=== PATIENT | female | born 1960 | race Caucasian/White ===

== ENCOUNTER 2017-01-07 07:19 | Day surgery (SDC) | payer MEDICARE, MEDICAID ==
[2017-01-07] VITALS (11 sets, daily range): BP systolic 101–177; BP diastolic 65–101; PULSE 59–77; RESP 14–18; O2SAT 92–99
[~2017-01-07] VITALS: Ht 152.4 cm; Wt 118.4 kg
[~2017-01-07 07:19] MED LIST: ALBU8.5H2 INHALATION; ATOR20TA PO; AZU500 PO; CHOL5000 PO; Clindamycin 600 mg/50 mL D5W IV ONE; HYDR-3740 PO; HYDR200T5 PO; NAPR500T PO; PREG150C PO
[2017-01-07] MEDS ORDERED: Lidocaine PF 1% 30 mL Inj ONE (07:20)
[2017-01-07] MEDS ORDERED: Propofol 10,000 mCg/mL 20 mL Inj ONE (07:20)
[2017-01-07] MEDS ORDERED: fentaNYL-PF 50 mCg/mL 2 mL Inj ONE (07:20)
[2017-01-07] MEDS ORDERED: Rocuronium 10 mg/mL 5 mL Inj ONE (07:20)
[2017-01-07] MEDS ORDERED: Dexamethasone 4 mg/mL Inj ONE (07:20)
[2017-01-07] MEDS ORDERED: Succinylcholine Chloride 20 mg/mL 5 mL Inj ONE (07:20)
[2017-01-07] MEDS ORDERED: Ondansetron 2 mg/mL 2 mL Inj ONE (07:20)
[2017-01-07] MEDS: Lactated Ringer's 1,000 ML IV SCH ×2 (08:28→09:41)
[2017-01-07] MEDS ORDERED: oxyCODONE-Acetamin 5-325 mg Tablet PO PRN (09:25)
[2017-01-07] MEDS ORDERED: Ketorolac 15 mg/mL Inj IVPUSH ONE (09:25)
--- NOTE | 2017-01-07 09:26 | PCM.ORTHOP ---
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 Without the qualified administrative assistant receptionist being present, it would have extended the operative procedure and made the procedure technically more difficult to perform. INDICATIONS: The patient is Yesenia Jewell who is a 56-year-old female with right shoulder pain and dysfunction. The risks, benefits, and alternatives of surgery were discussed with the patient. The risks included but were not limited to infection, bleeding, damage to vessels and nerves, loss of motion, continued pain, complications due to anesthesia including myocardial infarction , stroke, , etc. The patient stated understanding of the nature of the surgical procedure and gave written and verbal consent to proceed. PROCEDURE: The patient was brought into the operating room and placed supine on the operating room table. A interscalene block was placed in the right shoulder for postoperative pain management, followed by the administration of general anesthesia. . The patient was then placed into the lateral decubitus position with the right side up. An axillary role was placed and the legs were padded as necessary to avoid pressure points. The patient was maintained in position with a beanbag evacuation device. A thorough examination of the right shoulder under anesthesia was performed. The patient had 150 degrees of forward elevation and 120 degrees of abduction. In 90 degrees of abduction there was 90 degrees of external rotation and 70 degrees of internal rotation. The shoulder was stable to load-shift testing. The right upper extremity was then prepped and draped in the usual fashion. The arm was suspended with a well-padded sleeve with eight/ten pounds of balanced suspension in the arthroscopic position. A standard posterior portal was made inferior and medial to the posterior corner of the acromion. The incision was made only through skin. The trocar was advanced through the soft tissue with a blunt-tipped obturator. This was inserted into the glenohumeral joint without difficulty. The 4 mm arthroscope was placed through the cannula and attached to the video monitor system. Inflow was achieved using the arthroscopic pump. The pressure was maintained at 35-40 mm of mercury throughout the entire procedure. Once the arthroscope confirmed visualization within the shoulder joint, it was advanced anteriorly into the rotator interval beneath the biceps tendon. A Wissinger case was then used to create the anterior portal from inside-out. A second anterior stab wound incision was made only through skin and an anterior cannula was placed. A routine arthroscopic survey was begun. The anterior labrum was debrided down to stable base. The biceps was tenotomized and RF wand was used to tighten the tissues. Survey: A2 B2 C2 full-thickness rotator cuff tear, partial biceps tendon tear, anterior labral degenerative tear The arm was then placed in the bursoscopy position. Moderate synovitis was noted and a partial synovectomy was performed with a RF wand and shaver. Complex surgical procedure: This was an extremely complex surgical procedure which took approximately 30-40 % longer to complete than a standard repair. Without the use of a qualified first aid instructor, this surgical procedure would have taken even considerably longer and been unable to be performed arthroscopically. Caridad procedure: Within the subacromial space there was marked fraying on the undersurface of the coracoacromial ligament consistent with impingement. A decision was thus made to proceed with arthroscopic subacromial decompression. Using an RF wand and a motorized shaver the coracoacromial ligament was recessed from the anterior acromial edge. An orientation trough was made along the lateral margin of the acromion, from the anterior corner back to the posterior margin of the AC joint. A sequential subacromial smoothing was carried out, removing approximately [default value] mm of bone corresponding to the preoperative radiographs. Once completed, the AC joint capsule was opened. There was inferior spurring as well as synovitis and arthritic changes at the AC joint and a decision was made to proceed with distal clavicle excision. Using a motorized bur working initially from posteriorly and then anteriorly, the outer 10 mm of the distal clavicle were excised. The arthroscope was then positioned anteriorly within the AC resection site confirming an excellent level of resection. Single anchor repair Attention was then directed to the rotator cuff repair. Using the motorized shaver from both the anterolateral portal and the posterior portal, the free edge of rotator cuff was debrided. The anatomic neck of the tuberosity was then gently abraded, using the motorized shaver and exposing good bone for healing. Via an accessory anterolateral portal, a triple-loaded anchor was inserted, with excellent fixation purchase. The three stitches were then transported across the rotator cuff using a shuttling technique, spacing the sutures equidistantly. Once the sutures were all passed, they were sequentially tied, using SMC knots and alternating half-hitches, which gave excellent loop and knot security. This reduced the rotator cuff back to the anatomic neck. A microfracture was then performed laterally on the tuberosity creating a crimson duvet to aid in tendon healing. The biceps which was proceeded tenotomized intra-articularly was incorporated into the anterior limb of the rotator cuff repair. The biceps was tensioned prior to tenotomy with a needle and PDS suture intra-articularly and then tenodesed to the anchor. The arm was placed through range of motion and the rotator cuff and humeral head moved well as a unit. There was no further evidence for impingement. The subacromial space was irrigated with an additional 500 mL lactated Ringer solution. Excess fluid was drained. The arm was placed through a range of motion and the rotator cuff and humeral head moved well as a unit. There was no further evidence of impingement. The subacromial space was irrigated with an additional liter of lactated Ringer s solution and excess fluid was drained. The arthroscopic portals were closed with #4-0 Nylon and Steri-Strips. A dry sterile dressing was applied, followed by a neutral rotation sling. The patient was awakened in the operating room and transported to the recovery room in satisfactory condition. The patient appeared to tolerate the procedure well. There were no complications noted. Grafts, Implants: Implants-See Implant Record Complications There were no periprocedural complications identified. Condition Stable Anesthetic Administered: GA Catheters: None Output, Estimated Blood Loss: 5 Blood Admin during surgery: No Surgical Cast or Splint: Shoulder Immobilizer Surgical Specimen Removed: No Specimen sent to Pathology: No copies to: Justice Hagan MD, Christopher L MD Jan 07, 2017 09:26 #2 Orthocord suture across the rotator cuff tear. The defect in the rotator cuff was then closed using the suture by using a locking sliding knot, followed by alternating half-hitches. Two sutures were placed for this defect, repairing the tendon, closing the defect. Single anchor helix supraspinatus repair Attention was then directed to the rotator cuff repair. Using the motorized shaver from both the anterolateral portal and the posterior portal, the free edge of rotator cuff was debrided. The anatomic neck of the tuberosity was then gently abraded, using the motorized shaver and exposing good bone for healing. Via an accessory anterolateral portal, a triple-loaded anchor was inserted, with excellent fixation purchase. The three stitches were then transported across the rotator cuff using a shuttling technique, spacing the sutures equidistantly. Once the sutures were all passed, they were sequentially tied, using SMC knots and alternating half-hitches, which gave excellent loop and knot security. This reduced the rotator cuff back to the anatomic neck. A microfracture was then performed laterally on the tuberosity creating a crimson duvet to aid in tendon healing. The arm was placed through range of motion and the rotator cuff and humeral head moved well as a unit. There was no further evidence for impingement. The subacromial space was irrigated with an additional 500 mL lactated Ringer solution. Excess fluid was drained. Two anchor helix supraspinatus repair Attention was then directed to the rotator cuff repair. Using the motorized shaver from both the anterolateral portal and the posterior portal, the free edge of rotator cuff was debrided. The anatomic neck of the tuberosity was then gently abraded, using the motorized shaver and exposing good bone for healing. Via an accessory anterolateral portal, two triple-loaded were then inserted with excellent fixation purchase. The 6 stitches from these two anchors were then transported across the rotator cuff spacing the sutures equidistantly. Once the sutures were all passed, they were sequentially tied using SMC knots and alternative half-hitches which gave excellent loop and knot security. This reduced the rotator cuff back to the anatomic neck. A microfracture was then performed laterally on the tuberosity creating a crimson duvet to aid in tendon healing. The arm was then placed through a range of motion. The rotator cuff and humeral head moved well as a unit. There was no further evidence for impingement ARTHROSCOPIC BICEPS TENODESIS Attention was then directed towards biceps tenodesis. With the arthroscope in the lateral viewing portal a motorized shaver was introduced from the anterior working portal, identifying the Mehalik hitch at the top of the bicipital groove. A motorized shaver and VAPR wand was then used inferior from this, debriding the proximal humerus and identifying the falciform ligament. The biceps tendon was then identified and the bicipital sheath was opened using a probe. The groove did reveal evidence of synovitis in this area. With appropriate resting tension maintained using the Mehalik hitch, a percutaneous spinal needle was used to lindsay the resting position of the biceps tendon, as well as the position for tenodesis at the bottom of the inter-tubercular groove. A blue bisi was then used to lindsay with tendon. An accessory anterior inferior portal was made approximately 6-7 cm from the anterior acromial margin under arthroscopic control. A xnrj-xzk-xiumvp technique was used to spread the soft tissues down to the level of the bicipital groove. The long head of the biceps was then retrieved using a grasper and the tendon was brought out the wound. A #2 Double loaded Fiberwire Gerry Net stitch was placed for a length of 1.5 cm from the blue bisi marking position in the proximal biceps. This was then sized using the Arthrex biotenodesis set and measured mm. A mm reamer was then selected. A Canuflex cannula was then placed onto the bicipital groove. The biotenodesis guide wire was placed into the proximal humerus at the designated marking position corresponding to the appropriate tension and introduced just to the posterior cortex. The anterior cortex was then reamed using the reamer for a depth of 20 mm. 2 7/64 holes were then created approximately 1.5 cm inferior to the tunnel for suture passing. A Spectrum suture hook was placed through the inferior area relief pilot hole and retrieved out the proximal tunnel. A shuttling technique was carried out passing one suture limb on either side of the long head of the biceps. Tension was then applied to the biceps sutures, reducing and docking the biceps intra-osseously. With the elbow in full extension and the hand in full supination tension was applied to reapproximate the anatomic resting length and the biceps was then secured using an arthroscopic Revo knot, tying the two limbs of the suture together over the biceps tendon. This gave excellent secure fixation. The biceps was then probed and had stable fixation. The arm was placed through a range of motion and the rotator cuff and humeral head moved well as a unit. There was no further evidence of impingement. The subacromial space was irrigated with an additional liter of lactated Ringer s solution and excess fluid was drained. The arthroscopic portals were closed with #4-0 Nylon and Steri-Strips. A dry sterile dressing was applied, followed by a neutral rotation sling. The patient was awakened in the operating room and transported to the recovery room in satisfactory condition. The patient appeared to tolerate the procedure well. There were no complications noted. Grafts, Implants: Implants-See Implant Record Complications There were no periprocedural complications identified. Condition Stable Anesthetic Administered: GA Catheters: None Output, Estimated Blood Loss: 5 Blood Admin during surgery: No Surgical Cast or Splint: Shoulder Immobilizer Surgical Specimen Removed: No Specimen sent to Pathology: No copies to: Justice Hagan MD, Christopher L MD Jan 07, 2017 09:26
[2017-01-07] MEDS ORDERED: Lactated Ringer's 500 ML IV PRN (10:37)
[2017-01-07] MEDS ORDERED: Lactated Ringer's 1,000 ML IV SCH (10:37)
--- NOTE | 2017-01-07 10:37 | PCM.HPANE ---
Patient Data Surgeon Admitting Provider: Attending Provider:Justice Hagan MD Primary Care Physician:Adolfo Wood DO Other Provider:Shae Goodingham Anesthesia Reason for Visit Right Rotator Cuff Tear And Impingement Syndrome Ht/WT & BMI Height (Feet): 5 Height (Inches): 0 Weight (Kilograms): 116.84 Body Mass Index 50.00 Allergies Coded Allergies: Penicillins (Verified Allergy, Unknown, UNKNOWN, 01/02/17) Past Anesthesia History Anesthesia History: Denies:: Abnormal Airway, Anesthesia Reactions, Difficult Intubation, Fam Anesthesia Reaction, Fam Malignant Hypertherm, Malignant Hyperthermia Diabetes History Hx Diabetes?: No MRSA MRSA: No Medications Reported Medications Sulfasalazine 500 Mg [id number] Mg PO BID 30 Days Ref 0 01/02/17 Naproxen (Naprosyn)500 Mg [id number] Mg PO BID PRN For Pain Ref 0 01/02/17 Albuterol HFA (Proair HFA)8.5 Gm Hfa.aer.ad2 Puffs INHALATION Q4H PRN PRN #1 INHALER 01/02/17 Atorvastatin (Lipitor)20 Mg [id number] Mg PO DAILY Ref 0 10/01/16 Cholecalciferol (Vitamin D3) (Vitamin D3)5,000 Unit Capsule5,000 Unit PO DAILY 04/28/15 Hydroxychloroquine Sulfate 200 Mg [id number] Mg PO DAILY 04/28/15 Pregabalin (Lyrica)150 Mg [id number] Mg PO BID 30 Days Ref 0 12/27/14 Hydrocodone-Acetaminophen 10-325 mg 1 Tab Tablet1 Tab PO Q4-6H PRN For Pain Ref 0 12/27/14 Discontinued Reported Medications Albuterol HFA 8.5 Gm Hfa.aer.ad1-2 Puff IH Q 4-6HRS PRN PRN For Shortness of Breath #1 INHALER Ref 0 04/24/14 History History of ENT Problems?: Yes HEENT History: Positive for:: Sinus Problem (CHRONIC SINUSITIS, SEASONAL ALLERGIES) Denies:: Abnormal Airway Difficult Intubation Dysphagia Hx of Heart Problems?: Yes Cardiovascular History: Positive for:: Rheumatic Fever (PT UNSURE/POSSIBLY IN CHILDHOOD) Denies:: AICD Atrial Fibrillation Chest Pain Congestive Heart Failure Heart Murmur Hypertension (HYPERLIPIDEMIA) Pacemaker Valvular Heart Disease Hx of Respiratory Problem?: Yes Respiratory History: Positive for:: Asthma Cough (RASPY COUGH IS NORMAL FOR PATIENT) Use of C-PAP Machine (JUAN F+ W/ CPAP SLEEP STUDY 04/2015) Use of Inhalers / NEBS Denies:: COPD Hemoptysis Pneumonia Tuberculosis Other History/Comment Breathing is at baseline. No new coughs, wheezing or SOB Hx Neurologic Problems?: Yes Neurological History: Denies:: CVA Dementia Other Neurological Pertinent: RLS, INSOMNIA Hx of GI Problems?: Yes Gastrointestinal History: Positive for:: Gastroesphageal Reflux Denies:: Cirrhosis Diverticulitis (DIVERTICULOSIS HX OF C. DIFF COLITIS) Hiatal Hernia Rectal Bleeding Other GI Pertinent History: HX IBS S/P LT INGUINAL HERNIA RPR X2 Hx of Problems?: Yes Genitourinary History: Positive for:: Urinary Tract Infection (HX OF) Female Hx: Positive for:: Problems with Breasts? (S/P BILAT BREAST BX'S) Denies:: Currently (S/P BTL) Skin History: Denies:: History Skin Disorders? Pressure Ulcers Hx Musculoskeletal Problems?: Yes Musculoskeletal History: Positive for:: Degenerative Joint Fibromyalgia Musculoskeletal Trauma (S/P RT KNEE RPR X2, LT SHOULDER RPR ) Osteoarthritis (HX BURSITIS ) Rheumatoid Arthritis Denies:: Back Injury (C/OF CHR BACK PAIN) Joint Replacement Hx of Psycho/Social Problems?: Yes Psycho Social History: Positive for:: Anxiety Bipolar Disorder Hx Depression Denies:: Suicide Attempt Hx Surgeries?: Yes (TUBAL, CARPAL TUNNEL, ING HERNIA X2, C5-6 CERV FUSION, TRIGGER FING RELEASE ) Hx Any Other Health Problems?: Yes Other History: Positive for:: Hospitalization (CHILDBIRTH) Denies:: Cancer Endocrine Disease (C/OF NIGHT SWEATS) Thyroid Disease History Blood Transfusions: Denies:: Blood Transfusions Hx Diabetes: No Other Pertinent History: HX VITAMIN D DEFICIENCY Hx Alcohol Use: YesHx Substance Use: Yes (medical marijuana) Smoking Status: Current Some Day Smoker Have You Smoked inLast 12 mo: Yes Stop/Bang S-Snoring: Do You Snore Loudly: Yes T-Tired: feel tired, fatigued: Yes O-Obsered: Observed not breath: No P-Blood Pressure: treated: No B- Body Mass Index > 35 kg/m2: Yes A- Age over 50: Yes N- Neck Large Circumference: Yes G- Gender Male: No JUANF Total Score: 5 Risk Assessment Category Category 1A: Patient has history of documented sleep apnea, and HAS NOT received any narcotic, sedative or anesthesia administration during this stay. Category 1B: Patient has history of documented sleep apnea, and HAS received any narcotic , sedative or anesthesia administration during this stay Category 2: Patient has SUSPECTED Obstructive Sleep Apnea, and HAS received any narcotic , sedative or anesthesia administration during this stay. Category 3: Patient has SUSPECTED Obstructive Sleep Apnea and HAS NOT received narcotic, sedative or anesthesia administration during this stay. Category 4: Outpatient in Procedural Areas with known sleep apnea or who screen positive for High Risk via the STOP/BANG questionnaire. Exam Exam Vital Signs Vital Signs Date Time Temp Pulse Resp B/P Pulse Ox O2 Delivery O2 Flow Rate FiO2 01/07/17 08:05 36.2 64 16 134/94 97 Room Air General Appearance: Alert, Oriented X3 HEENT/AIRWAY: MP 2, Neck Movement (Slight stiffness) Lungs: Clear to Auscultation, Clear to Percussion Heart: Exam Unremarkable, Regular Rate/Rhythm Plan Impression Patient chart reviewed, patient interviewed and anesthestic plan with risks, benefits, and alternatives discussed, and informed consent obtained. NPO Status: 09/30 2000 ASA Physical Status: ASA3 Severe Disease (Morbid obesity, chronic opiates, JUAN F) Anesthetic Plan: GA, Regional Block (R interscalene block for post-op pain per surgeon request) Bene/Risks/Altern/Consents: Yes HP Complete Prior to Induction: Yes Other I discussed r/b/a of interscalene block for post-op pain (per Dr. Hagan request) . Pt. does have morbid obesity and asthma (which is at baseline), however she also has been on chronic opiates and is quite tolerant of opiates per her history, making post-op pain control with opiates possibly challenging. After hearing r/b/a she consents to the interscalene block GA for anesthetic. Dawit Jones MD Jan 07, 2017 08:14
[2017-01-07] MEDS ORDERED: fentaNYL-PF 50 mCg/mL 2 mL Inj IVPUSH PRN (10:40)
[2017-01-07] MEDS ORDERED: Labetalol 5 mg/mL 4 mL Inj IV PRN (10:40)
[2017-01-07] MEDS ORDERED: HYDROmorphone 1 mg/mL Inj IVPUSH PRN (10:40)
[2017-01-07] MEDS ORDERED: EPHEDrine Sulfate 50 mg/mL Inj IVPUSH PRN (10:40)
[2017-01-07] MEDS ORDERED: MetoCLOpramide 5 mg/mL 2 mL Inj IVPUSH PRN (10:40)
[2017-01-07] MEDS ORDERED: Atropine 0.4 mg/mL Inj IVPUSH PRN (10:40)
[2017-01-07] MEDS ORDERED: Phenylephrine 10,000 mCg/mL Inj IVPUSH PRN (10:40)
[2017-01-07] MEDS ORDERED: Ondansetron 2 mg/mL 2 mL Inj IVPUSH PRN (10:40)
[2017-01-07] MEDS ORDERED: Ropivacaine-PF 0.5% 30 mL Inj INJ ONE (11:35)
--- NOTE | 2017-01-07 12:30 | PCM.ANEP1 ---
Post Anesthesia Phase 1 PACU Phase 1 Assessment Date of Service: Jan 07, 2017 Vital Signs Vital Signs Date Time Temp Pulse Resp B/P Pulse Ox O2 Delivery O2 Flow Rate FiO2 01/07/17 12:10 70 15 117/66 93 Nasal Cannula 3 01/07/17 11:55 74 14 124/79 92 Nasal Cannula 2 01/07/17 11:50 69 16 124/65 99 Simple Mask 10 01/07/17 11:45 70 15 152/101 99 Simple Mask 10 01/07/17 11:40 71 14 101/67 99 Simple Mask 10 01/07/17 10:22 59 16 177/91 98 Room Air 01/07/17 08:05 36.2 64 16 134/94 97 Room Air Anesthetic Administered: GA Level of Alertness: Awake, talking LAGUNAS's with Equal Strength: Yes Pain: No Nausea or Vomiting: No Oxygen Delivery: Simple Mask Lungs: Clear to Auscultation, Clear to Percussion Dawit Jones MD Jan 07, 2017 12:30
--- NOTE | 2017-01-07 12:30 | PCM.ANEP2 ---
Post Anesthesia Evaluation ASA/CMS Post Anesthesia VS in Patient's Normal Range?: Yes Resp Stable; Airway Patent?: Yes CV Function & Hydration Stable: Yes Mental Status Recovered?: Yes Pain control Satisfactory?: Yes N/V Control Satisfactory?: Yes Dawit Jones MD Jan 07, 2017 12:30
== END 2017-01-07 23:59 | disposition home or self-care (01) ==
LOC: SAS 07:19
PROVIDERS: ATTEND Orthopaedic Surgery
DX: M75.121 Complete rotator cuff tear or rupture of right shoulder, not specified as traumatic (principal); M75.41 Impingement syndrome of right shoulder; M13.811 Other specified arthritis, right shoulder; M75.21 Bicipital tendinitis, right shoulder; G47.33 Obstructive sleep apnea (adult) (pediatric); G25.81 Restless legs syndrome; A04.7 Enterocolitis due to Clostridium difficile; M79.7 Fibromyalgia; F41.9 Anxiety disorder, unspecified; F32.9 Major depressive disorder, single episode, unspecified; F17.210 Nicotine dependence, cigarettes, uncomplicated; E66.01 Morbid (severe) obesity due to excess calories; Z68.43 Body mass index [BMI] 50.0-59.9, adult; J45.909 Unspecified asthma, uncomplicated; K21.9 Gastro-esophageal reflux disease without esophagitis
CPT/HCPCS: 29824; 29826; 29827; 29828; 76942; C1713; J0171; J0330; J1100; J2250; J2405; J2795; J3010; J7120

== ENCOUNTER 2017-07-26 07:48 | Emergency (ER) | payer MEDICARE, MEDICAID ==
[~2017-07-26] VITALS: Ht 152.4 cm; Wt 107.3 kg
[~2017-07-26 07:48] MED LIST changes: -Clindamycin 600 mg/50 mL D5W IV ONE
[2017-07-26 07:59] VITALS: BP 135/85; PULSE 70; RESP 16; O2SAT 98
--- NOTE | 2017-07-26 08:08 | ED.REPORT ---
HPI-Extremity Problem Lower Date of Service Jul 26, 2017 ED Provider: Edmundo Downey MD Pt is a 56 year old female with a hx of osteoarthritis and fibromyalgia who presents to the ED with concerns for R knee pain with no known recent trauma, onset last night. She reports that she injured this knee several years ago after a slipping injury, with subsequent surgical repair. The pain is worsening with bending of her knee and walking. She reports that nothing has been able to alleviate her pain. She reports that she hasn't noticed any swelling in this joint. Pt states that she has never had joint pain like this in the past. She reports that she has Vicodin prescribed for her baseline medical concerns, she takes 3 of these every day, but reports that this has been unable to alleviate her pain with this medication. Nursing Notes Stated Complaint: RT KNEE PAIN Chief Complaint: Extremity Trauma Nursing Notes Reviewed: Yes (Snapstream, Greetzs not reconciled) Allergies: Coded Allergies: Penicillins (Verified Allergy, Unknown, UNKNOWN, 01/02/17) Scheduled Cholecalciferol (Vitamin D3) (Vitamin D3) 1,000 Unit Tab.chew 1,000 UNIT PO DAILY Scheduled PRN Albuterol HFA (Proair HFA) 8.5 Gm Hfa.aer.ad 2 PUFFS INHALATION Q4H PRN PRN PRN Hydrocodone-Acetaminophen 10-325 mg (Hydrocodone-Acetaminophen 10-325 mg) 1 Tab Tablet 1 TAB PO Q4-6H PRN PRN For Pain Ibuprofen (Ibuprofen) 800 Mg Tablet 800 MG PO TID PRN PRN For Pain oxyCODONE-Acetaminophen 10-325 mg (oxyCODONE-Acetaminophen 10-325 mg) 1 Each Tablet 1 TABLET PO Q6H PRN PRN For Pain General Time Seen by MD: 08:06 Chief Complaint Knee injury right Hx Obtained From: Patient Arrived By: Walk-in Onset Occurred: Yesterday Symptom Duration: Since onset Location: : Knee right Quality: Painful Severity: Current: Moderate Severity: Maximum: Moderate Similar Sx Previous: Yes Past Medical History Past Medical History depression Fibromyalgia Osteoarthritis Reports: Hyperlipidemia Smoking History Current Some Day Smoker Review of Systems Constitutional: Denies: Chills, Fever, Malaise, Weakness - generalized Musculoskeletal: Reports: Extremity pain, Joint pain, Denies: Back pain, Neck pain Skin: Denies Diaphoresis Neurologic: Denies: Change LOC, Confusion, Dizziness, Headache, Syncope, Weakness Complete sys rev & neg: except as marked. Physical Exam Initial Vital Signs Vital Signs (First) Date Time Temp Pulse Resp B/P Pulse Ox O2 Delivery O2 Flow Rate FiO2 07/26/17 07:59 36.6 70 16 135/85 98 Room Air Initial VS: Reviewed, Vital signs normal Head / Eyes: Atraumatic, Normocephalic, PERRL ENT: Mucous membranes moist, Conjunctiva normal, No scleral icterus Neck: Supple, Non-tender, Full range of motion Respiratory: Breath sounds normal, Clear to auscultation, No respiratory distress Skin: Warm, Dry, No cyanosis Neurologic: Alert, Oriented, Nonfocal Lower Extremity / Pelvis / MS: No swelling, No deformity Right knee appears normal Pain with ROM, but full intact ROM is preserved No evience of a septic joint No warmth or effusion No cellulitis Neurovascularly in tact Ankle / Foot: Atraumatic, Full range of motion, Non-tender General/Constitutional: Awake, No acute distress Behavior: Positive: Tearful Appearance / Presentation: Positive: In pain, Uncomfortable Interpretation & Diagnostics Lab Results Interpretation Test 07/26/17 09:43 Body Fluid Source Synovial fluid Body Fluid Color Straw (Clear) Body Fluid Appearance Hazy Body Fluid WBC 145/mm3 Body Fluid RBC 9/mm3 Body Fluid Polynuclear WBCs 8% Body Fluid Lymphocytes 80% Body Fluid Monocytes 7% Body Fluid Eosinophils 5% Body Fluid Basophils 0% Lab Results Interpretation: Synovial Gram stain negative, culture pending Crystals negative Cell count without severe leukocytosis or features to suggest infection X-Ray Interpretation Xray Interpretation: IMPRESSION: Moderate effusion. No visualized acute fracture or dislocation. However, if clinical concern and/or pain persist, short interval imaging followup in 7-10 days is recommended, as occult injury cannot be definitively excluded. Dictated by: Amirah Austin M.D. on 07/26/2017 at 8:53 X-Ray Ordered: Knee right Interpretation / Wet Read by: Interpret - Radiologist Procedures Arthrocentesis Time: 09:38 Aspiration Performed by: ED physician Consent / Setup / Site Prep: Informed consent provided, Time-out performed, Hand hygiene observed, Stand sterile technique, Standard surgical scrub, Sterile drapes applied Indication: Evacuate effusion Skin Preparation Agent: Hibiclens - Chlorhexidine Local Anesthesia: Lidocaine 1% Joint Aspirated: Knee right Fluid Appearance: Serous Post-Procedure / Complications: Antibiotic oint applied, Dressing placed, No complications, Condition improved, Tolerated procedure well, Patient stable Re-Eval/Medical Decision Med Decision/Clinical Course This is a 56-year-old female presents with acute right knee pain that is nontraumatic in nature. She reports good sleep last night, and came in but has not noted any overt swelling, although habitus makes exam more difficult, has not noted any redness, fever. She has no prior history of gout. She does reports she's had "arthritis tests" there were abnormal on one drop, and the normal neck-but does not have a formal diagnosis of any type of rheumatoid arthritis or other similar process. She does have chronic fibromyalgia and is on hydrocodone at baseline. On exam she is afebrile, nontoxic, clinically I didn't appreciate much of an effusion, but exams, complicated by habitus. There is no warmth, she is able to flex and extend her knee with some mild pain but without clinical features of a septic joint. The leg is neurovascularly intact. Her hip exam was normal no evidence of referred joint process pain. Plan redress the right knee were negative except for an effusion, given the absence of other causes and arthrocentesis under sterile conditions are as performed, and a small amount of clear yellow synovial fluid was obtained without difficulty. CSF was negative for any markers of septic joint or alexandre infection, gout crystal studies were also negative. She received ibuprofen and pain medicine is improved. I'm not finding evidence for need for admission. Supportive care sugars discussed. Written for 2-1/2 days of some oxycodone for pain control instead. Patient's also had 10 mL's of cane administered into the joint during the procedure with marked improvement. Routine and return precautions reviewed. Source of Hx: Old records Re-Evaluation/Progress : Time of Eval: 11:51 Re-Evaluation/Progress Note: Pt is rechecked and informed of the plan to discharge her at this time. She understands and agrees, all questions are addressed. Differential Diagnosis: Positive: Knee effusion, Negative: Abrasion, Achilles tendon rupture, Ankle dislocation, Arterial occlus/ischemia, Fracture, Greater trochant fracture, Knee disloc ant, Knee disloc post, Laceration, Subungual hematoma, Superficial thrombophleb, Tibia distal fracture, Tripod fracture, Venous thromboembolism Counseled Regarding: Diagnosis, Lab results, Need for follow-up, When/why to return to ED Discharge & Departure Impression: Primary Impression: Right knee pain Chronicity: acute Qualified Code: M25.561 - Pain in right knee Additional Impression: Effusion, right knee Discharge Condition All VS Reviewed: Yes Condition: Stable Additional Instructions: 1. The x-ray of the knee was normal except that he had a fluid collection of the joint which we aspirated. 2. Your fluid analysis was negative for signs of infection, or gout/pseudogout 3. This suggests the pain is simply from inflammation - and is inspected to improve with time. 4. Use the Ochoa wrap for comfort. 5. Take ibuprofen 800mg three times a day for pain. 6. If needed for more severe pain take oxycodone/APAP 10/325 up to 3-4 times a day for the next several days (INSTEAD OF YOUR REGULAR HYDROCODONE) Note: This medication contains a narcotic and causes drowsiness, no driving for at least 4-6 hours after taking 7. Cough for a follow-up appointment with Dr. Wood Referrals: Adolfo Wood DO (PCP) Monalisa Attestation Portions of this note were transcribed by Pily Macedo. I, Dr. Cabrera, Dr. Downey personally performed the history, physical exam and medical decision- making; I reviewed and confirmed the accuracy of the information in the transcribed note. Signed by: Monalisa Block, 07/26/2017 11:49 copies to: Adolfo Wood Matthew F MD Jul 26, 2017 08:08 BARBARA MACEDO Jul 26, 2017 08:15
[2017-07-26] MEDS ORDERED: CHOL10008 PO (08:23)
[2017-07-26] MEDS ORDERED: Ondansetron 8 mg ODT Tablet PO ONE (08:25)
[2017-07-26] MEDS ORDERED: HYDROmorphone 1 mg/mL Inj IM ONE (08:25)
--- NOTE | 2017-07-26 08:56 | DRSVH ---
PROCEDURE: X-RAY RIGHT KNEE, THREE VIEWS ([id number]) INDICATIONS: Pain TECHNIQUE: 3 views of the knee were acquired. COMPARISON: None. FINDINGS: Bones: No fractures or dislocations. No suspicious bony lesions. Soft tissues: Moderate joint effusion. No suspicious soft tissue calcifications. IMPRESSION: Moderate effusion. No visualized acute fracture or dislocation. However, if clinical conc will and/or pain persist, short interval imaging followup in 7-10 days is recommended, as occult injur y cannot be definitively excluded. Dictated by: Amirah Austin M.D. on 07/26/2017 at 8:53 Approved by: Amirah Austin M.D. on 07/26/2017 at 8:55
[2017-07-26] MEDS ORDERED: Bupivacaine 0.5% 50 mL Inj INFILTRATE ONE (09:10)
[2017-07-26 10:33] VITALS: BP 121/81; PULSE 61; RESP 16; O2SAT 96
[2017-07-26 11:04] LABS: BFWBC 145 /mm3; MONOCYTES,BODY FLUID 7 %; OTHER CELLS,BODY FLUID 0
[2017-07-26] MEDS ORDERED: IBUP800T28 PO (11:37)
[2017-07-26] MEDS ORDERED: OXYC-466 PO (11:37)
[2017-07-26 12:13] VITALS: BP 130/82; PULSE 56; RESP 15; O2SAT 95
== END 2017-07-26 12:14 | disposition home or self-care (01) ==
LOC: SED 07:48
DX: M25.461 Effusion, right knee (principal); M79.7 Fibromyalgia; E78.5 Hyperlipidemia, unspecified; F17.200 Nicotine dependence, unspecified, uncomplicated; Z79.51 Long term (current) use of inhaled steroids; Z88.0 Allergy status to penicillin
CPT/HCPCS: 20610; 73562; 87070; 87205; 89051; 89060; 96372; 99284; J1170